=== PATIENT | female | born 1985 | race Hispanic/Latino ===

== ENCOUNTER 2016-08-21 23:49 | Emergency (ER) | payer OTHER ==
[~2016-08-21] VITALS: Ht 175.3 cm; Wt 61.2 kg
[~2016-08-21 23:49] MED LIST: IBUPROFEN800 MG PO; PERCOCET 325 MG1 TA2 PO; VICODIN5-300 PO
--- NOTE | 2016-08-21 23:59 | ED NECK/BACK PAIN COMPLAINT ---
History of Present Illness General Chief Complaint: Low Back Pain/Injury Stated Complaint: LOWER BACK PAIN Source: patient, old records Exam Limitations: no limitations Vital Signs & Intake/Output Vital Signs & Intake/Output Vital Signs Date Time Temp Pulse Resp B/P B/P Pulse O2 O2 Flow FiO2 Mean Ox Delivery Rate 08/22 0004 98.0 72 18 121/78 99 Room Air Allergies Coded Allergies: NO KNOWN ALLERGIES (06/27/12) Reconcile Medications Cyclobenzaprine HCl 5 MG TABLET 1 TAB PO TIDPRN PRN PAIN HYDROCODONE/ACETAMINOPHEN (Hydrocodon-Acetaminophen 5-325) 5 MG-325 MG TABLET 1 TAB PO Q6HR PRN PAIN Ibuprofen 800 MG TABLET 800 MG PO Q6P PRN PAIN SCALE 4-6 OXYCODONE HCL/ACETAMINOPHEN (Percocet 5-325 MG Tablet) 325 MG/5 MG TAB 1 TAB PO Q4P PRN PAIN SCALE 7-8 Tramadol HCl 50 MG TABLET 1 TAB PO BIDP PRN PAIN Triage Nurses Notes Reviewed? yes Onset: Abrupt Duration: day(s): (1), constant Timing: recent history Quality/Severity: mild, moderate (aching) Location: paraspinous muscles Radiation: none Context: lifting Loss of Consciousness: no loss of consciousness Modifying Factors: movement, pain medication, rest Associated Symptoms: denies HPI: 31-year-old female presents to ER for evaluation of exacerbation of her chronic bilateral lower back pain for the past 1 day. She states that she has is pain secondary to a lifting injury she sustained while at work a few years ago. She denies recent injury trauma or fall. There is no radiation the pain no numbness or tingling in her legs no urinary bowel incontinence no abdominal pain. The patient states her last partial cycles last month and normal. She denies chance of no dysuria urgency frequency no abdominal pain nausea or vomiting. She is not taken anything for her symptoms tonight were sought care until today (CATALINO VALDEZ) Past History Travel History Traveled to [place] past 21 day No Medical History Any Pertinent Medical History? see below for history Blood Disorders: anemia Surgical History Surgical History: non-contributory Psychosocial History What is your primary language Kazakh Family History Hx Contributory? No (CATALINO VALDEZ) Review of Systems Review of Systems Constitutional: Reports: see HPI. All Other Systems: Reviewed and Negative Comments Review of systems: See HPI, All other systems negative. Constitutional, no chills no fever, no malaise no weight loss HEENT: No visual changes no sore throat no congestion, no ear pain Cardiovascular: No chest pain , no palpitation , no orthopnea Skin: no rashes, no change in skin Respiratory: No dyspnea no cough no sputum no hemoptysis GI: No nausea no vomiting, no diarrhea, no bloating/constipation : No dysuria No hematuria, no frequency, no discharge Muscle skeletal: No joint pain, no joint swelling, back pain, no neck pain, Neurologic: No numbness no confusion, no headache Psych: No stress no depression,. Heme/endocrine: No bruising no bleeding Immunology: No lymphadenopathy (CATALINO VALDEZ) Physical Exam Physical Exam General Appearance: well developed/nourished, no apparent distress, alert, awake Neck: normal inspection, supple, full range of motion Comments: Well-developed well-nourished person in no acute distress HEENT: Normal EENT exam; PERRL, EOMI, HEAD is atraumatic. moist mucous membranes. Neck: Supple, , normal range of motion Back: Bilateral paralumbar muscle tenderness palpation no ecchymosis no midline tenderness, no CVA tenderness. Full range of motion Cardiovascular: Regular rate and rhythms no murmurs Respiratory: No respiratory distress. Patient speaking in full complete sentences. Breath sounds clear to auscultation bilaterally: NO W/R/R Abdomen: Soft, nontender nondistended, no appreciable organomegaly. Normal bowel sounds. No rebound/guarding, No appreciable enlargement of the abdominal aorta, No ascites. Extremity: No edema, full range of motion of extremities, normal and equal pulses bilaterally, 5 out of 5 strength noted to bilateral upper and lower extremities negative straight leg raise bilaterally Neuro: Alert oriented x3, motor sensory normal, There were no obvious focal neurologic abnormalities. Skin: No appreciable rash on exposed skin, skin is warm and dry. Psych: Mood and affect is normal, memory and judgment is normal. (CATALINO VALDEZ) Progress Differential Diagnosis: cauda equina syn, herniated disc, myofascial strain, pyelo/UTI, sciatica, spinal cord inj, T/L spine injury, ureterolithiasis, Plan of Care: I discussed with the patient at length all of their results. I had an extensive conversation regarding need for close follow up with their primary care physician this week as well as return precautions. I answered all of their questions, they feel comfortable with the plan and follow-up care. I discussed the medications that they will receive with the patient. I gave them signs and symptoms that could indicate an adverse reaction. I have advised them to limit their activities until they can see how they respond to the medication. (CATALINO VALDEZ) Departure Departure Time of Disposition: 0005 Disposition: HOME OR SELF CARE Condition: Stable Clinical Impression Primary Impression: Low back strain Referrals: EDISON GOODWIN APRN (PCP/Family) Additional Instructions: TRAMADOL FOR PAIN, FLEXERIL DIRECTED. USE CAUTION THESE MEDICATIONS MAY MAKE YOU DROWSY. NO DRIVING OR DRINKING ALCOHOL WHILE TAKING. HEATING PAD NEEDED. FOLLOW UP WITH YOUR PMD THIS WEEK. RETURN WITH ANY CONCERNS THESE WERE SENT TO [facility] Departure Forms: Customer Survey General Discharge Information Prescriptions: Current Visit Scripts Tramadol HCl 1 TAB PO BIDP PRN PAIN #10 TAB Cyclobenzaprine HCl 1 TAB PO TIDPRN PRN PAIN #12 TAB (CATALINO VALDEZ) PA/DEMONSTRATOR SALES Co-Sign Statement Statement: ED Attending supervision documentation- [] I saw and evaluated the patient. I have also reviewed all the pertinent lab results and diagnostic results. I agree with the findings and the plan of care as documented in the PA's/DEMONSTRATOR SAL[employer]'s documentation. [x] I have reviewed the ED Record and agree with the PA's/DEMONSTRATOR [employer]'s documentation. [] Additions or exceptions (if any) to the PAs/DEMONSTRATOR [employer]'s note and plan are summarized below: [] (NAVID RANDLE,LANDY Juarez)
[2016-08-22 00:04] VITALS: BP 121/78
[2016-08-22] MEDS ORDERED: TRAMADOL HCL50 M1 PO (00:06)
[2016-08-22] MEDS ORDERED: CYCLOBENZAPRINE5 M2 PO (00:06)
== END 2016-08-22 00:17 ==
LOC: ERH 23:49
DX: S16.1XXA Strain of muscle, fascia and tendon at neck level, initial encounter (principal); X50.0XXA Overexertion from strenuous movement or load, initial encounter; Y93.89 Activity, other specified; Y92.9 Unspecified place or not applicable

== ENCOUNTER 2016-10-12 19:00 | Emergency (ER) | payer OTHER ==
[~2016-10-12] VITALS: Ht 175.3 cm; Wt 59.0 kg
[~2016-10-12 19:00] MED LIST changes: +CYCLOBENZAPRINE5 M2 PO; +TRAMADOL HCL50 M1 PO
--- NOTE | 2016-10-12 19:42 | ED GENERAL ADULT ---
History of Present Illness General Chief Complaint: General Adult Stated Complaint: HEAVINESS IN CHEST Source: patient Exam Limitations: no limitations Vital Signs & Intake/Output Vital Signs & Intake/Output Vital Signs Date Time Temp Pulse Resp B/P B/P Pulse O2 O2 Flow FiO2 Mean Ox Delivery Rate 10/12 2148 96.0 58 18 107/67 100 Room Air 10/121 Room Air 10/12 1906 98.7 81 18 115/73 98 Room Air Allergies Coded Allergies: NO KNOWN ALLERGIES (06/27/12) Reconcile Medications Budesonide (Uceris) 2 MG/ACTUATION FOAM.APPL 1 DAVID LA BID PRN ULCERATIVE COLITIS (Reported) Budesonide (Uceris) 9 MG TABDR...ER 1 TAB PO DAILY ULCERATIVE COLITIS ( Reported) Etonogestrel (Nexplanon) 68 MG IMPLANT CONTROL - LEFT ARM (Reported) Triage Note: 31 YO FEMALE TO TRIAGE C/O CHEST HEAVINESS SINCE THIS AM. STATES THE HEAVINESS SITE RIGHT IN THE CENTER OF HER CHEST AND SOMETIMES RADIATES TO THE RIGHT SIDE OF HER CHEST. DENIES SOB. DENIES ABD PAIN, NVD. EKG COMPLETED ON ARRIVAL. Triage Nurses Notes Reviewed? yes Onset: Abrupt Duration: day(s): Timing: recent history : No Patient currently breastfeeds: No HPI: 10/12/16 8 PM 31-year-old female presents to the emergency department complaining of chest pain. According to the patient she was in her usual state of health until earlier today when she developed a gradual onset of left sided upper chest pain. She denies any shortness of breath. She says that she has a past medical history of ulcerative colitis. She does smoke. She has an occasional cough. She is on oral contraceptives. The onset of the symptoms were abrupt, the duration was just today, the severity is significant as her symptoms required her to the emergency department for care. (ADEBAYO LONDONO DO) Past History Travel History Traveled to [place] past 21 day No Medical History Any Pertinent Medical History? see below for history Neurological: NONE EENT: NONE Cardiovascular: NONE Respiratory: NONE Gastrointestinal: ulcerative colitis Hepatic: NONE Renal: NONE Musculoskeletal: chronic back pain Psychiatric: NONE Endocrine: NONE Blood Disorders: anemia Cancer(s): NONE TELETYPESETTER/Reproductive: NONE Surgical History Surgical History: non-contributory Psychosocial History What is your primary language Lebanese Tobacco Use: Current Daily Use Daily Tobacco Use Amount/Type: => 5 Cigarettes daily Family History Hx Contributory? No (ADEBAYO LONDONO DO) Review of Systems Review of Systems Constitutional: Reports: no symptoms. EENTM: Reports: no symptoms. Respiratory: Reports: no symptoms. Denies: cough, short of breath. Cardiovascular: Reports: chest pain. GI: Reports: no symptoms. Genitourinary: Reports: no symptoms. Musculoskeletal: Reports: no symptoms. Skin: Reports: no symptoms. Denies: rash. Neurological/Psychological: Reports: no symptoms. Hematologic/Endocrine: Reports: no symptoms. Immunologic/Allergic: Reports: no symptoms. All Other Systems: Reviewed and Negative (ADEBAYO LONDONO DO) Physical Exam Physical Exam General Appearance: well developed/nourished, alert, awake, anxious Head: atraumatic, normal appearance Eyes: Bilateral: normal appearance, PERRL, EOMI. Ears, Nose, Throat: normal pharynx, normal ENT inspection Neck: normal inspection, supple, full range of motion Respiratory: normal breath sounds, chest non-tender, no respiratory distress Cardiovascular: regular rate/rhythm Peripheral Pulses: 4+ radial (R), 4+ radial (L) Gastrointestinal: non-tender Back: normal range of motion Extremities: normal inspection, normal range of motion, no edema Neurologic/Psych: no motor/sensory deficits, awake, alert, oriented x 3 Skin: intact, normal color, warm/dry Core Measures ACS in differential dx? No CVA/TIA Diagnosis: No Severe Sepsis Present: No Septic Shock Present: No (ADEBAYO LONDONO DO) Progress Differential Diagnoses I considered the following diagnoses in my evaluation of the patient: [Acute coronary syndrome, costochondritis, pulmonary embolism, pneumothorax, pneumonia, bronchitis, pleuritis] Plan of Care: Orders Procedure Date/time Status TROPONIN LEVEL 10/12 2146 Complete EKG 10/12 2146 Active TROPONIN LEVEL 10/12 1941 Complete D-DIMER 10/12 1941 Complete COMPREHENSIVE METABOLIC PANEL 10/12 1941 Complete CBC WITHOUT DIFFERENTIAL 10/12 1941 Complete EKG 10/12 1901 Active Laboratory Tests 10/12/16 2219: Troponin I < 0.01 10/12/16 2005: Anion Gap 10, Estimated GFR > 60, BUN/Creatinine Ratio 25.0, Glucose 80, Calcium 9.0, Total Bilirubin 0.4, AST 18, ALT 31, Alkaline Phosphatase 54, Troponin I < 0.01, Total Protein 7.9, Albumin 4.2, Globulin 3.7, Albumin/Globulin Ratio 1.1, D-Dimer High Sensitivty < 200, CBC w Diff NO MAN DIFF REQ, RBC 4.27, MCV 85.1, MCH 27.6, RDW 12.8, MPV 8.2, Gran % 56.7, Lymphocytes % 31.1, Monocytes % 8.2, Eosinophils % 3.3, Basophils % 0.7, Absolute Granulocytes 4.8, Absolute Lymphocytes 2.6, Absolute Monocytes 0.7 H, Absolute Eosinophils 0.3, Absolute Basophils 0.1, PUBS MCHC 32.4 L Initial ED EKG: NSR (ADEBAYO LONDONO DO) CXR Impression: no acute abnormality, no infiltrates, normal size heart, normal mediastinum Comments: PATIENT: LARRY RECINOS PRESENT AGE: 31 PATIENT ACCOUNT NO: [id number] : 84 LOCATION: [facility] ORDERING PHYSICIAN: ADEBAYO LONDONO DO SERVICE DATE: 10/12/16 EXAM TYPE: RAD - XRY-PORTABLE CHEST XRAY EXAMINATION: XR PORTABLE CHEST CLINICAL INFORMATION: Chest pain in a postoperative patient. COMPARISON: None TECHNIQUE: Portable frontal view of the chest was obtained. FINDINGS: The cardiomediastinal silhouette is unremarkable. The lungs and pleural spaces appear clear without evidence of congestion, consolidation, or significant appearing effusion or atelectasis. There is no evidence of pneumothorax or pulmonary edema. Included osseous structures appear largely unremarkable. No soft tissue or mediastinal emphysema is seen. IMPRESSION: Unremarkable examination. DICTATED BY: SIRI MENDOZA MD DATE/TIME DICTATED:10/12/162018 SUPERVISOR FABRICATION:FABY DATE/TIME TRANSCRIBED:10/12/162018 CONFIDENTIAL, DO NOT COPY WITHOUT APPROPRIATE AUTHORIZATION. <Electronically signed in Other Vendor System> SIGNED BY: SIRI MENDOZA MD 2023 (NAVID RANDLE,LANDY Juarez) Departure Departure Disposition: STILL A PATIENT Condition: Stable Clinical Impression Primary Impression: Chest wall pain Referrals: EDISON GOODWIN APRN (PCP/Family) Departure Forms: Customer Survey General Discharge Information Comments 10/12/16 10:20 pm The patient is in no acute distress and has no pain currently in the Emergency Department. Repeat EKG shows no change. Repeat troponin is pending. She was signed out to Dr. Camp at 10 PM. (ADEBAYO LONDONO DO) Departure Comments 10/12/16, 23:20... troponin #2 negative.... pt resting comfortably. to my exam, pt with reproducible chest wall tenderness. discussed with patient. she is safe for discharge. close follow up advised. (NAVID RANDLE,LANDY Juarez) Critical Care Note Critical Care Note Critical Care Time: non-applicable (ADEBAYO LONDONO DO)
[2016-10-12 20:18] LABS: ABSOLUTE BASOPHIL COUNT 0.1 /CUMM (0.0-0.2); ABSOLUTE EOSINOPHIL COUNT 0.3 /CUMM (0.0-0.7); ABSOLUTE GRANULOCYTE CT 4.8 /CUMM (1.4-6.5); ABSOLUTE LYMPH COUNT 2.6 /CUMM (1.2-3.4); ABSOLUTE MONOCYTE COUNT 0.7 /CUMM (0.10-0.60); BASOPHIL % 0.7 % (0.0-2.0); EOSINOPHIL % 3.3 % (0-5); GRANULOCYTE % 56.7 % (42.2-75.2); HEMATOCRIT 36.3 % (37-47); MEAN CORPUSCULAR HGB 27.6 PG (27.0-31.0); MEAN CORPUSCULAR HGB CONC 32.4 G/DL (33.0-37.0); MEAN CORPUSCULAR VOLUME 85.1 FL (81.0-99.0); MEAN PLATELET VOLUME 8.2 FL (7.4-10.4); PLATELET COUNT 377 /CUMM (130-400); RBC DISTRIBUTION WIDTH 12.8 % (11.5-14.5); RED BLOOD CELL CT 4.27 /CUMM (4.20-5.40); WHITE BLOOD CELL COUNT 8.4 /CUMM (4.8-10.8)
--- NOTE | 2016-10-12 20:24 | RADIOLOGY REPORT ---
EXAMINATION: XR PORTABLE CHEST CLINICAL INFORMATION: Chest pain in a postoperative patient. COMPARISON: None TECHNIQUE: Portable frontal view of the chest was obtained. FINDINGS: The cardiomediastinal silhouette is unremarkable. The lungs and pleural spaces appear clear without evidence of congestion, consolidation, or significant appearing effusion or atelectasis. There is no evidence of pneumothorax or pulmonary edema. Included osseous structures appear largely unremarkable. No soft tissue or mediastinal emphysema is seen. IMPRESSION: Unremarkable examination.
[2016-10-12] MEDS ORDERED: UCERIS PR (21:08)
[2016-10-12] MEDS ORDERED: UCERIS9 M1 PO (21:09)
[2016-10-12] MEDS ORDERED: NEXPLANON68 M1 (21:09)
[2016-10-12 23:26] VITALS: BP 110/70
== END 2016-10-12 23:27 ==
LOC: ERH 19:00
PROVIDERS: Emergency Medicine
DX: R07.89 Other chest pain (principal)
CPT/HCPCS: 93005; 93010